=== PATIENT | male | born 1960 | race Caucasian/White ===

== ENCOUNTER 2018-05-07 00:25 | Emergency (ER) | payer MEDICAID, OTHER ==
[~2018-05-07] VITALS: Ht 167.6 cm; Wt 61.6 kg
[2018-05-07 00:35] VITALS: Ht 167.6 cm; Wt 61.6 kg
[2018-05-07] MEDS ORDERED: SOD CHLORIDE 0.9% 1,000 ML IV STA (00:44)
[2018-05-07] MEDS ORDERED: HYDR10FO PR (02:20)
[2018-05-07 03:05] VITALS: BP 127/84; PULSE 98; RESP 18
--- NOTE | 2018-05-28 00:24 | ERD ---
ER Documentation Chief Complaint Chief Complaint bib [id number] c/o rectal bleed when wiping x 1 day, denies "worms in intake". HPI This is a 57-year-old brought in by rescue with complaints of rectal bleeding on wiping times 1 day. Patient states that he is been mildly constipated. Denies fevers or chills. Mild pain with wiping. No fevers no other current complaints. ROS All systems reviewed and are negative except as per history of present illness. Medications Home Meds Active Scripts Hydrocortisone/Pramoxine* (Proctofoam-HC*) 1%-10 Gm Foam, 1 APPLIC [place] BID, #1 EA Prov:JESUS MOTTA 05/07/18 Allergies Allergies: Coded Allergies: No Known Drug Allergies (Verified Allergy, Unknown, 05/07/18) PMhx/Soc Medical and Surgical Hx: pt denies Medical Hx History of Surgery: Yes (HERNIA REPAIR) Anesthesia Reaction: No Hx Neurological Disorder: No Hx Respiratory Disorders: No Hx Cardiac Disorders: No Hx Psychiatric Problems: No Hx Miscellaneous Medical Probl: No Hx Alcohol Use: Yes Hx Substance Use: No Hx Tobacco Use: Yes Smoking Status: Current every day smoker Physical Exam Physical Exam Const: No acute distress Head: Atraumatic Eyes: Normal Conjunctiva ENT: Normal External Ears, Nose and Mouth. Neck: Full range of motion. No meningismus. Resp: Clear to auscultation bilaterally Cardio: Regular rate and rhythm, no murmurs Abd: Soft, non tender, non distended. Normal bowel sounds Skin: No petechiae or rashes Back: No midline or flank tenderness Ext: No cyanosis, or edema Neur: Awake and alert Psych: Normal Mood and Affect Results 24 hrs Laboratory Tests Test 05/07/18 01:15 White Blood Count 5.8 10^3/ul Red Blood Count 4.12 10^6/ul Hemoglobin 14.2 g/dl Hematocrit 40.8 % Mean Corpuscular Volume 99.0 fl Mean Corpuscular Hemoglobin 34.5 pg Mean Corpuscular Hemoglobin Concent 34.8 g/dl Red Cell Distribution Width 12.4 % Platelet Count 273 10^3/UL Mean Platelet Volume 9.7 fl Immature Granulocytes % 0.500 % Neutrophils % 54.9 % Lymphocytes % 34.9 % Monocytes % 7.8 % Eosinophils % 0.5 % Basophils % 1.4 % Nucleated Red Blood Cells % 0.0 /100WBC Immature Granulocytes # 0.030 10^3/ul Neutrophils # 3.2 10^3/ul Lymphocytes # 2.0 10^3/ul Monocytes # 0.5 10^3/ul Eosinophils # 0.0 10^3/ul Basophils # 0.1 10^3/ul Nucleated Red Blood Cells # 0.0 10^3/ul Sodium Level 144 mmol/L Potassium Level 4.1 mmol/L Chloride Level 112 mmol/L Carbon Dioxide Level 24 mmol/L Anion Gap 8 Blood Urea Nitrogen 10 mg/dl Creatinine 0.70 mg/dl Est Glomerular Filtrat Rate mL/min > 60 mL/min Glucose Level 111 mg/dl Calcium Level 8.5 mg/dl Total Bilirubin 0.3 mg/dl Direct Bilirubin 0.00 mg/dl Indirect Bilirubin 0.3 mg/dl Aspartate Amino Transf (AST/SGOT) 235 IU/L Alanine Aminotransferase (ALT/SGPT) 135 IU/L Alkaline Phosphatase 116 IU/L Total Protein 8.2 g/dl Albumin 4.3 g/dl Globulin 3.90 g/dl Albumin/Globulin Ratio 1.10 Lipase 345 U/L Ethyl Alcohol Level 394.0 mg/dl Current Medications Medications Dose Sig/Monica Start Time Status Last (Trade) Ordered Route PRN Stop Time Admin Dose Reason Admin Sodium 1,000 ml @ Q1H STAT 05/07/18 DC 05/07/18 Chloride 1,000 mls/hr IV 00:44 01:19 05/07/18 01:43 Procedures/MDM Medical decision makin-year-old male with likely hemorrhoid. No evidence of gross bleeding here. Fecal occult negative upon examination here. Stable for outpatient management. Told to return for worsening symptoms. Departure Diagnosis: Primary Impression: Rectal hemorrhage Condition: Stable Patient Instructions: Hemorrhoids JESUS MOTTA May 28, 2018 00:24
== END 2018-05-07 03:12 | disposition home or self-care (01) ==
LOC: E/R 00:25
DX: K62.5 Hemorrhage of anus and rectum (principal); F17.210 Nicotine dependence, cigarettes, uncomplicated
CPT/HCPCS: 74176; 80053; 80307; 83690; 85025; J7030; 36415